=== PATIENT | male | born 1960 | race Caucasian/White ===

== ENCOUNTER → 2019-09-10 | Day surgery (SDC) | payer BC, OTHER ==
[~2019-09-10] MED LIST: Lactated Ringers 1,000 ML IV SCH; Propofol 200 MG/20 ML SDV IV ONE
[2019-09-10 12:16] VITALS: BP 133/81; PULSE 57
--- NOTE | 2019-09-10 14:51 | OR ---
DATE OF OPERATION: 09/10/2019 PREOPERATIVE DIAGNOSIS: DYSPHAGIA. POSTOPERATIVE DIAGNOSIS: DISTAL ESOPHAGEAL MASS. SURGEON: Pavel Villela MD PROCEDURE: EGD WITH BIOPSIES X4, DARIAN. ANESTHESIA: MAC. COMPLICATIONS: None. SPECIMEN: 1. Antral DARIAN. 2. Biopsy x3, EG junction. 3. Biopsy x1, distal esophagus. FINDINGS: 1. Full-length EGD. 2. 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 RECOMMENDATIONS: The patient will have a medical followup with Dr. Acuña who has been contacted about this procedure and results. Pathology will be pending and patient will follow up next week for further definitive instructions. INDICATIONS: The patient has apparently been having some ongoing issues with dysphagia where it feels like food is getting stuck in the lower to mid chest. Dr. Acuña sent him for diagnostic EGD. DESCRIPTION OF PROCEDURE: The patient was prepped and draped, placed in the left lateral decubitus position with the head of the bed slightly elevated. A lubricated Olympus gastroscope was inserted over a bit and advanced to cricopharyngeus area and easily intubated into the esophagus. The esophageal lining was benign until its most distal portion at around 34 to 35 cm. The patient has a large polypoid-type mass extending from 35 cm down to the EG junction at 40 cm. At that point, there was circumferential thickening and inflammation around the whole junction. The scope was easily intubated into the stomach, through the pylorus, and into the second portion of duodenum. This and the duodenal bulb were benign. The scope was brought back into the stomach and retroflexed. The upper fundus and cardia appeared unremarkable. Upon straightening, the rest of the fundus and antrum were completely benign without any other lesions, masses, ulcerations, or signs of peptic ulcer disease. A CLOtest was obtained. The scope was brought back up into the distal esophagus. The thickened portion of the junction was biopsied x2. The base of the mass at the junction was biopsied as well as the upper portion as well and totalling 4, all of them adequate biopsies. Air was suctioned from the stomach. The scope was removed without complication. CINDY/ESTHER /[id number]
== END ==
LOC: CC.SDS 10:22
PROVIDERS: ATTEND Family Medicine
DX: C16.0 Malignant neoplasm of cardia (principal); I10 Essential (primary) hypertension; E78.5 Hyperlipidemia, unspecified; N40.0 Benign prostatic hyperplasia without lower urinary tract symptoms; M19.012 Primary osteoarthritis, left shoulder; M19.011 Primary osteoarthritis, right shoulder; Z87.891 Personal history of nicotine dependence; Z88.0 Allergy status to penicillin; Z79.82 Long term (current) use of aspirin; Z79.899 Other long term (current) drug therapy
CPT/HCPCS: 43239; 87081; J2704; J7120